=== PATIENT | female | born 1930 | race Caucasian/White ===

== ENCOUNTER → 2017-03-28 | Day surgery (SDC) | payer MEDICARE ==
[~2017-03-28] MED LIST: ALBU8I INH; ATOR40TA49 PO; CEPH500C3 PO; COEN400C PO; CRAN500C2 PO; GINK40TA2 PO; GLIP5 PO; LACTATED RINGER'S 1000 ML INJ 1,000 ML ONE; LEVO.1 PO; LEVO88TA2 PO; LORA0.5T PO; OCUVTAB4 PO; OMEG5CAP PO; OYST500T77 PO; PARO30TA PO; PROPOFOL 500 MG/50 ML BTL IV ONE; PROT40TA PO; TRIM100T8 PO; VITA500T83 PO; VITATAB25 PO; [UNRECOGNIZED DRUG - OTHER] PO
--- NOTE | 2017-03-28 12:38 | GIPROC ---
[facility] [address] [facility], [id number] COLONOSCOPY PROCEDURE REPORT EXAM DATE: 03/28/2017 PATIENT NAME: Leeanna Meyers MR #: [id number] BIRTHDATE: 1930 ENDOSCOPIST: Sarabjit Adrian MD ORDER #: [id number] MICRO PHOTOGRAPHER: Niya Rojas RN STATUS: outpatient INDICATIONS: The patient is a 86 yr old female here for a colonoscopy due to high risk patient with personal history of colonic polyps and chronic diarrhea PROCEDURE PERFORMED: Colonoscopy with biopsy Colonoscopy with ablation Colonoscopy with polypectomy MEDICATIONS: None and Per Anesthesia. PREP QUALITY: good ESTIMATED BLOOD LOSS: None CONSENT: The patient understands the risks and benefits of the procedure and understands that these risks include, but are not limited to: sedation, allergic reaction, infection, perforation and/or bleeding. Alternative means of evaluation and treatment include, among others: physical exam, x-rays, and/or surgical intervention. The patient elects to proceed with this endoscopic procedure. medical equipment was checked for proper function. Hand hygiene and appropriate measures for infection prevention was taken. After the risks, benefits and alternatives of the procedure were thoroughly explained, Informed consent was verified, confirmed and timeout was successfully executed by the treatment team. A digital exam was performed and revealed no abnormalities of the rectum The EC-[id number] ([id number]) and [id number] ([id number]) endoscope was introduced through the anus and advanced to the cecum, which was identified by both the appendix and ileocecal valve. The instrument was then slowly withdrawn as the colon was fully examined. 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 Polyp in the cecum removed by snare. 5 polyps in the rectum 3 removed by snare and 2 ablated with heat. The colon mucosa was otherwise normal. Random Bx from cecum and sigmoid for diarrhea. Retroflexed views revealed no abnormalities The scope was then completely withdrawn from the patient and the procedure terminated. ADVERSE EVENTS: There were no complications. IMPRESSIONS: 1. 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 Polyp in the cecum removed by snare 3. 5 polyps in the rectum 3 removed by snare and 2 ablated with heat 4. The colon mucosa was otherwise normal 5. Random Bx from cecum and sigmoid for diarrhea 6. Retroflexed views revealed no abnormalities 7. Was performed 8. Revealed no abnormalities of the rectum RECOMMENDATIONS: 1. Await biopsy results. Biopsy results will not be ready for 7-10 days. If you don't hear from us in two weeks, call our office for results. 2. Yearly hemoccult 3. High fiber diet 4. RTC in 3 wks RECALL: 1. Return 3 years Colonoscopy 2. Return 3 months Flexible Sigmoidoscopy Sarabjit Adrian MD eSigned: Sarabjit Adrian MD 03/28/2017 12:38 PM cc: PATIENT NAME: Leeanna Meyers MR#: [id number]
== END | disposition home or self-care (01) ==
LOC: ESDC 09:40
PROVIDERS: ATTEND Hospitalist
DX: R19.7 Diarrhea, unspecified (principal); Z86.010 Personal history of colon polyps; Q27.33 Arteriovenous malformation of digestive system vessel; D12.0 Benign neoplasm of cecum; K62.1 Rectal polyp
CPT/HCPCS: 00810; 45380; 45385; 45388; 88305; J7120

== ENCOUNTER 2017-05-07 09:56 | Emergency (ER) | payer MEDICARE ==
[~2017-05-07] VITALS: Ht 154.9 cm; Wt 66.0 kg
[~2017-05-07 09:56] MED LIST changes: -LACTATED RINGER'S 1000 ML INJ 1,000 ML ONE; -PROPOFOL 500 MG/50 ML BTL IV ONE
[2017-05-07 09:58] VITALS: BP 144/79; PULSE 90; RESP 20; TEMP 98.9; O2SAT 96
[2017-05-07 10:20] VITALS: BP 161/78; PULSE 89; RESP 17; TEMP 97.8; O2SAT 98
[2017-05-07 10:58] VITALS: RESP 18; O2SAT 98
[2017-05-07] MEDS ORDERED: SODIUM CHLORIDE 0.9% FLUSH 10 ML FLUSH IVF PRN (11:00)
[2017-05-07 11:36] LABS: AUTOMATED NEUTROPHIL # 7.1 TH/MM3 (1.8-7.7); BASOPHIL % 0.1 % (0.0-2.0); EOSINOPHIL % 0.4 % (0.0-4.0); HEMATOCRIT 43.6 % (35.0-46.0); HEMO FLAGS DIFF FINAL; LYMPH % 14.1 % (9.0-44.0); LYMPHOCYTE # 1.3 TH/MM3 (1.0-4.8); MEAN CELL VOLUME 91.7 FL (80.0-100.0); MEAN CORPUSCULAR HGB CONC 32.7 % (32.0-36.0); MONO % 5.5 % (0.0-8.0); NEUT % 79.9 % (16.0-70.0); PLATELET COUNT 224 TH/MM3 (150-450); RED BLOOD COUNT 4.75 MIL/MM3 (4.00-5.30); RED CELL DISTRIBUTION WIDTH 18.6 % (11.6-17.2); WHITE BLOOD COUNT 8.9 TH/MM3 (4.0-11.0)
--- NOTE | 2017-05-07 11:36 | PD ---
HPI Chief Complaint: Abnormal Results Time Seen by Provider: 10:51 Travel History International Travel<30 days: No Contact w/Intl Traveler<30days: No Traveled to known affect area: No History of Present Illness HPI Patient is an 86-year-old female with history of dementia, htn, hyperlipidemia, hypothyroidism who is brought to the emergency room after having a hypoglycemic episode. Patient does have history of diabetes, she does take glipize daily. As per EMS, patient was found unresponsive by her , EMS reported a blood sugar of 32 upon their arrival, reports the patient was essentially unresponsive. Patient was given D5 ordered 25 mg IV and was given a sandwich and cranberry juice, which that she became alert and oriented after she was given the amp of glucose. Patient is alert to person and place, not time, patient with no complaint at this time. PFSH Past Medical History Depression: Yes Cancer: No Cardiovascular Problems: Yes Diabetes: Yes Diminished Hearing: No Glaucoma: Yes Genitourinary: Yes (URINARY LEAKAGE) Hepatitis: No Hiatal Hernia: No Hypertension: No Immune Disorder: No Musculoskeletal: Yes (ARTHRITIS ) Neurologic: No Reproductive: No Respiratory: Yes (SLEEPS W/ 2L O2 @ NIGHT, SLEEP APNEA, UNABLE TO USE CPAP) Immunizations Current: No Thyroid Disease: Yes Menopausal: Yes : 3 Para: 3 Past Surgical History Abdominal Surgery: Yes (UMBILICAL HERNIA REPAIR) AICD: No Body Medical Devices: NONE Cardiac Surgery: No Ear Surgery: No Endocrine Surgery: No Eye Surgery: Yes (BILATERAL CATARACT) Genitourinary Surgery: No Gynecologic Surgery: No Joint Replacement: No Oral Surgery: No Pacemaker: No Thoracic Surgery: No Other Surgery: Yes Social History Alcohol Use: No Tobacco Use: Yes (PPD X 65 YEARS) Substance Use: No Allergies-Medications (Allergen,Severity, Reaction): Coded Allergies: Cipro (Verified Allergy, Mild, Hives, 05/07/17) Ciprofloxacin (Verified Allergy, Mild, Hives, 05/07/17) Levaquin (Verified Allergy, Mild, FLU LIKE SYMPTOMS; CHILLS, 05/07/17) Nitrofurantoin (Verified Allergy, Mild, Hives, 05/07/17) Sulfa (Verified Allergy, Mild, Hives, 05/07/17) Levofloxacin (Verified Adverse Reaction, Severe, Nausea/Vomiting, 05/07/17) Aspirin (Verified Adverse Reaction, Intermediate, IRRITATES STOMACH, ) Reported Meds & Prescriptions Reported Meds & Active Scripts Active Reported Ventolin Hfa 18 GM Inh (Albuterol Sulfate) 90 Mcg/Act Aer 2 Puff INH QID PRN C 500 (Ascorbic Acid) 500 Mg Tab 500 Mg PO HS Atorvastatin (Atorvastatin Calcium) 40 Mg Tab 40 Mg PO HS Calcium (Calcium Carbonate) 600 Mg Tab 600 Mg PO DAILY Vitamin D3 (Cholecalciferol) 1,000 Unit Tab 1,000 Units PO DAILY Coq-10 Tr (Coenzyme Q10 (Ubidecarenone)) 100 Mg Cap 100 Mg PO DAILY Cranberry (Cranberry Fruit Extract) 500 Mg Capsule 500 Mg PO DAILY Ginkgo Biloba 120 Mg Tablet 120 Mg PO DAILY Glipizide 5 Mg Tab 5 Mg PO BID Take 30 minutes before a meal Levothyroxine (Levothyroxine Sodium) 88 Mcg Tab 88 Mcg PO DAILY Lorazepam 0.5 Mg Tab 0.5 Mg PO BID Preservision Areds (Multiple Vitamins W/ Minerals) 1 Tab 1 Tab PO DAILY Pantoprazole (Pantoprazole Sodium) 40 Mg Tab 40 Mg PO DAILY Paxil (Paroxetine HCl) 30 Mg Tab 30 Mg PO DAILY Potassium Gluconate 595 Mg Tab 595 Mg PO DAILY Plavix (Clopidogrel Bisulfate) 75 Mg Tab 75 Mg PO DAILY Questran (Cholestyramine) 4 Gm/Pkt Powd 4 Gm PO TID 1 packet contains 4gm of cholestyramine. Tramadol (Tramadol HCl) 50 Mg Tab 50 Mg PO Q6H PRN Lomotil (Diphenoxylate-Atropine) 2.5-0.025 Mg Tab 1 Tab PO TID PRN Flonase Nasal [place] (Fluticasone Nasal [place]) 50 Mcg/Act [place] 1-2 [place] EACH NARE DAILY Review of Systems General / Constitutional: No: Fever Eyes: No: Visual changes HENT: No: Headaches Cardiovascular: No: Chest Pain or Discomfort Respiratory: No: Shortness of Breath Gastrointestinal: No: Abdominal Pain Genitourinary: No: Dysuria Musculoskeletal: No: Pain Skin: No Rash Neurologic: No: Weakness Psychiatric: No: Depression Endocrine: No: Polydipsia Hematologic/Lymphatic: No: Easy Bruising Physical Exam Narrative GENERAL: NAD SKIN: Focused skin assessment warm/dry. HEAD: Atraumatic. Normocephalic. EYES: Pupils equal and round. No scleral icterus. No injection or drainage. ENT: No nasal bleeding or discharge. Mucous membranes pink and moist. NECK: Trachea midline. No JVD. CARDIOVASCULAR: Regular rate and rhythm. No murmur appreciated. RESPIRATORY: No accessory muscle use. Clear to auscultation. Breath sounds equal bilaterally. GASTROINTESTINAL: Abdomen soft, non-tender, nondistended. Hepatic and splenic margins not palpable. MUSCULOSKELETAL: No obvious deformities. No clubbing. No cyanosis. No edema. NEUROLOGICAL: Awake and alert. No obvious cranial nerve deficits. Motor grossly within normal limits. Normal speech. PSYCHIATRIC: Patient pleasantly demented Data Data Last Documented VS Vital Signs Date Time Temp Pulse Resp B/P Pulse Ox O2 Delivery O2 Flow Rate FiO2 05/07/17 14:32 97.9 84 17 119/67 98 Room Air Orders Complete Blood Count With Diff (05/07/17 10:57) Comprehensive Metabolic Panel (05/07/17 10:57) Magnesium (Mg) (05/07/17 10:57) Urinalysis - C+S If Indicated (05/07/17 10:57) Blood Glucose (05/07/17 10:57) Blood Glucose (05/07/17 11:27) Blood Glucose (05/07/17 10:57) Ecg Monitoring (05/07/17 10:57) Iv Access Insert/Monitor (05/07/17 10:57) Oximetry (05/07/17 10:57) Sodium Chloride 0.9% Flush (Ns Flush) (05/07/17 11:00) Electrocardiogram (05/07/17 ) Urine Culture (05/07/17 11:00) Ceftriaxone Inj (Rocephin Inj) (05/07/17 14:30) Blood Glucose (05/07/17 14:17) Labs Laboratory Tests Test 05/07/17 11:00 White Blood Count 8.9 TH/MM3 Red Blood Count 4.75 MIL/MM3 Hemoglobin 14.2 GM/DL Hematocrit 43.6 % Mean Corpuscular Volume 91.7 FL Mean Corpuscular Hemoglobin 30.0 PG Mean Corpuscular Hemoglobin 32.7 % Concent Red Cell Distribution Width 18.6 % Platelet Count 224 TH/MM3 Mean Platelet Volume 8.5 FL Neutrophils (%) (Auto) 79.9 % Lymphocytes (%) (Auto) 14.1 % Monocytes (%) (Auto) 5.5 % Eosinophils (%) (Auto) 0.4 % Basophils (%) (Auto) 0.1 % Neutrophils # (Auto) 7.1 TH/MM3 Lymphocytes # (Auto) 1.3 TH/MM3 Monocytes # (Auto) 0.5 TH/MM3 Eosinophils # (Auto) 0.0 TH/MM3 Basophils # (Auto) 0.0 TH/MM3 CBC Comment DIFF FINAL Differential Comment Urine Color YELLOW Urine Turbidity HAZY Urine pH 5.5 Urine Specific [place] 1.010 Urine Protein TRACE mg/dL Urine Glucose (UA) TRACE mg/dL Urine Ketones 10 mg/dL Urine Occult Blood TRACE Urine Nitrite POS Urine Bilirubin NEG Urine Urobilinogen LESS THAN 2.0 MG/DL Urine Leukocyte Esterase LARGE Urine RBC 13 /hpf Urine WBC 22 /hpf Urine Squamous Epithelial 2 /hpf Cells Urine Calcium Oxalate Crystals RARE /hpf Urine Amorphous Sediment OCC Urine Bacteria MANY /hpf Urine Mucus FEW /lpf Microscopic Urinalysis Comment CULTURE INDICATED Sodium Level 140 MEQ/L Potassium Level 3.6 MEQ/L Chloride Level 104 MEQ/L Carbon Dioxide Level 24.5 MEQ/L Anion Gap 12 MEQ/L Blood Urea Nitrogen 17 MG/DL Creatinine 1.06 MG/DL Estimat Glomerular Filtration 49 ML/MIN Rate Random Glucose 152 MG/DL Calcium Level 8.9 MG/DL Magnesium Level 1.6 MG/DL Total Bilirubin 0.6 MG/DL Aspartate Amino Transf 37 U/L (AST/SGOT) Alanine Aminotransferase 22 U/L (ALT/SGPT) Alkaline Phosphatase 140 U/L Total Protein 6.6 GM/DL Albumin 2.3 GM/DL [facility] Medical Decision Making Medical Screen Exam Complete: Yes Emergency Medical Condition: Yes Interpretation(s) EKG at 1138: NSR at 84bpm, qt/qtc: 390/431, no acute st or t wave changes, rbbb Vital Signs Date Time Temp Pulse Resp B/P Pulse Ox O2 Delivery O2 Flow Rate FiO2 05/07/17 10:58 18 98 Room Air 05/07/17 10:20 97.8 89 17 161/78 98 05/07/17 09:58 98.9 90 20 144/79 96 Room Air Differential Diagnosis Differential includes medication overdose, electrolyte abnormality, arrhythmia, UTI, dehydration Narrative Course Patient is an 86 year old female who presents to ER with c/o of hypoglycemic episodes. Patient was given an amp of D25 by EMS and was given a sandwich as well as cranberry juice. Patients bs 168. Plan to obtain serial bs's. will obtain basic labs as well as ua. Plan to monitor patient Vital Signs Date Time Temp Pulse Resp B/P Pulse Ox O2 Delivery O2 Flow Rate FiO2 05/07/17 14:32 97.9 84 17 119/67 98 Room Air 05/07/17 12:30 89 18 125/68 98 Room Air 05/07/17 10:58 18 98 Room Air 05/07/17 10:20 89 18 98 Room Air 05/07/17 10:20 97.8 89 17 161/78 98 05/07/17 09:58 98.9 90 20 144/79 96 Room Air Laboratory Tests Test 05/07/17 11:00 White Blood Count 8.9 TH/MM3 (4.0-11.0) Red Blood Count 4.75 MIL/MM3 (4.00-5.30) Hemoglobin 14.2 GM/DL (11.6-15.3) Hematocrit 43.6 % (35.0-46.0) Mean Corpuscular Volume 91.7 FL (80.0-100.0) Mean Corpuscular Hemoglobin 30.0 PG (27.0-34.0) Mean Corpuscular Hemoglobin 32.7 % Concent (32.0-36.0) Red Cell Distribution Width 18.6 % (11.6-17.2) Platelet Count 224 TH/MM3 (150-450) Mean Platelet Volume 8.5 FL (7.0-11.0) Neutrophils (%) (Auto) 79.9 % (16.0-70.0) Lymphocytes (%) (Auto) 14.1 % (9.0-44.0) Monocytes (%) (Auto) 5.5 % (0.0-8.0) Eosinophils (%) (Auto) 0.4 % (0.0-4.0) Basophils (%) (Auto) 0.1 % (0.0-2.0) Neutrophils # (Auto) 7.1 TH/MM3 (1.8-7.7) Lymphocytes # (Auto) 1.3 TH/MM3 (1.0-4.8) Monocytes # (Auto) 0.5 TH/MM3 (0-0.9) Eosinophils # (Auto) 0.0 TH/MM3 (0-0.4) Basophils # (Auto) 0.0 TH/MM3 (0-0.2) CBC Comment DIFF FINAL Differential Comment Urine Color YELLOW (YELLW/STRAW) Urine Turbidity HAZY (CLEAR) Urine pH 5.5 (5.0-8.5) Urine Specific [place] 1.010 (1.002-1.035) Urine Protein TRACE mg/dL (NEG-TRACE) Urine Glucose (UA) TRACE mg/dL (NEG) Urine Ketones 10 mg/dL (NEG) Urine Occult Blood TRACE (NEG) Urine Nitrite POS (NEG) Urine Bilirubin NEG (NEG) Urine Urobilinogen LESS THAN 2.0 MG/DL (LESS THAN 2.0) Urine Leukocyte Esterase LARGE (NEG) Urine RBC 13 /hpf (0-3) Urine WBC 22 /hpf (0-5) Urine Squamous Epithelial 2 /hpf (0-5) Cells Urine Calcium Oxalate Crystals RARE /hpf (NONE) Urine Amorphous Sediment OCC Urine Bacteria MANY /hpf (NONE) Urine Mucus FEW /lpf (OCC) Microscopic Urinalysis Comment CULTURE INDICATED Sodium Level 140 MEQ/L (136-145) Potassium Level 3.6 MEQ/L (3.5-5.1) Chloride Level 104 MEQ/L (98-107) Carbon Dioxide Level 24.5 MEQ/L (21.0-32.0) Anion Gap 12 MEQ/L (5-15) Blood Urea Nitrogen 17 MG/DL (7-18) Creatinine 1.06 MG/DL (0.50-1.00) Estimat Glomerular Filtration 49 ML/MIN (>89) Rate Random Glucose 152 MG/DL (74-106) Calcium Level 8.9 MG/DL (8.5-10.1) Magnesium Level 1.6 MG/DL (1.5-2.5) Total Bilirubin 0.6 MG/DL (0.2-1.0) Aspartate Amino Transf 37 U/L (15-37) (AST/SGOT) Alanine Aminotransferase 22 U/L (10-53) (ALT/SGPT) Alkaline Phosphatase 140 U/L (45-117) Total Protein 6.6 GM/DL (6.4-8.2) Albumin 2.3 GM/DL (3.4-5.0) patient well-appearing in the emergency room, patient with no complaints. patient has had multiple blood sugar evaluation while in the ER. BS stable BS at discharge 78. she has been observed in the ER for 5 hours. She does appear to have UTI - will treat for uti. patient will follow up with her pcp and will return to ER as needed Diagnosis Primary Impression: Hypoglycemia Additional Impression: UTI (urinary tract infection) Qualified Code: N30.01 - Acute cystitis with hematuria Patient Instructions: General Instructions Additional Instructions: Please follow up with your primary care doctor Please monitor your blood sugar carefully Please follow up with your cultures from today Please return to the ER as needed Please have your primary care doctor repeat all your lab work from today Med/Other Pt SpecificInfo: Prescription(s) given Scripts Cephalexin (Keflex)500 Mg [id number] Mg PO Q6H 7 Days Ref 0 Prov:Regina Oliva DO 05/07/17 Disposition: 01 DISCHARGE HOME Condition: Stable Regina Oliva DO May 07, 2017 11:36
[2017-05-07 11:48] LABS: BACTERIA, URINE MANY /hpf; BLOOD, URINE TRACE (NEG); CALCIUM OXALATE CRYSTALS,URINE RARE /hpf; COMMENT (UR) CULTURE INDICATED; CULTURE IF INDICATED CULTURE INDICATED; GLUCOSE,URINE TRACE mg/dL (NEG); KETONE, URINE 10 mg/dL (NEG); MUCUS URINE FEW /lpf (OCC); NITRITE,URINE POS (NEG); PH, URINE 5.5 (5.0-8.5); SQUAMOUS EPITHELIAL CELL URINE 2 /hpf (0-5); URINE COLOR YELLOW (YELLW/STRAW)
[2017-05-07 12:06] LABS: ALKALINE PHOSPHATASE 140 U/L (45-117); ALT (GPT) 22 U/L (10-53); TOTAL BILIRUBIN ADULT 0.6 MG/DL (0.2-1.0)
[2017-05-07 12:19] LABS: ANION GAP 12 MEQ/L (5-15); AST (GOT) 37 U/L (15-37); BICARBONATE 24.5 MEQ/L (21.0-32.0); BLOOD UREA NITROGEN 17 MG/DL (7-18); CHLORIDE 104 MEQ/L (98-107); GLOMERULAR FILTRATION RATE 49 ML/MIN (>89); MAGNESIUM 1.6 MG/DL (1.5-2.5); POTASSIUM 3.6 MEQ/L (3.5-5.1); SODIUM (NA) 140 MEQ/L (136-145)
[2017-05-07 12:30] VITALS: BP 125/68; PULSE 89; RESP 18; O2SAT 98
[2017-05-07] MEDS ORDERED: LOMO2.5T PO (12:56)
[2017-05-07] MEDS ORDERED: FLUT1SPR5 EACH NARE (12:56)
[2017-05-07] MEDS ORDERED: QUES4POW PO (13:10)
[2017-05-07] MEDS ORDERED: TRAM50TA PO (13:10)
[2017-05-07] MEDS ORDERED: CRAN500C9 PO (13:10)
[2017-05-07] MEDS ORDERED: ATOR40TA16 PO (13:10)
[2017-05-07] MEDS ORDERED: GLIP5TAB8 PO (13:10)
[2017-05-07] MEDS ORDERED: PANT40TA3 PO (13:10)
[2017-05-07] MEDS ORDERED: PLAV75TA29 PO (13:10)
[2017-05-07] MEDS ORDERED: COQ-100C5 PO (13:10)
[2017-05-07] MEDS ORDERED: CALC600T25 PO (13:10)
[2017-05-07] MEDS ORDERED: GINK120T4 PO (13:10)
[2017-05-07] MEDS ORDERED: C 50TAB PO (13:10)
[2017-05-07] MEDS ORDERED: VITA100064 PO (13:10)
[2017-05-07] MEDS ORDERED: POTA595T PO (13:10)
[2017-05-07] MEDS ORDERED: OCUVTAB4 PO (13:10)
[2017-05-07] MEDS ORDERED: PAXI30TA7 PO (13:10)
[2017-05-07] MEDS ORDERED: LORA-373 PO (13:10)
[2017-05-07] MEDS ORDERED: LEVO88TA2 PO (13:10)
[2017-05-07] MEDS ORDERED: VENTAER INH (13:11)
[2017-05-07] MEDS ORDERED: cefTRIAXone INJ 1,000 MG in SODIUM CHLORIDE 0.9% INJ 100 ML IV ONE (14:30)
[2017-05-07 14:32] VITALS: BP 119/67; PULSE 84; RESP 17; TEMP 97.9; O2SAT 98
[2017-05-07] MEDS ORDERED: CEPH-460 PO (15:53)
[2017-05-07 18:15] VITALS: BP 143/81; TEMP 97.8
--- NOTE | 2017-05-08 12:37 | EKG ---
Date Performed: 05/07/2017 Time Performed: 11:38:35 PTAGE: 86 years EKG: Sinus rhythm BORDERLINE LEFT AXIS DEVIATION RIGHT BUNDLE BRANCH BLOCK Compared to prior tracing no significant ch kevin ABNORMAL ECG PREVIOUS TRACING : 08/19/2015 08.25 DOCTOR: Alessandro Oropeza Interpretating Date/Time 05/08/2017 12:33:39
[2017-05-11] MEDS ORDERED: HYDR-3516 PO (12:26)
== END 2017-05-07 18:16 | disposition home or self-care (01) ==
LOC: NEPE 09:56
DX: E11.649 Type 2 diabetes mellitus with hypoglycemia without coma (principal); N30.01 Acute cystitis with hematuria; B96.20 Unspecified Escherichia coli [E. coli] as the cause of diseases classified elsewhere; Z79.84 Long term (current) use of oral hypoglycemic drugs
CPT/HCPCS: 80053; 81001; 83735; 85025; 87077; 87086; 87186; 93005; 96365; 99284; J0696

== ENCOUNTER 2017-05-18 08:28 | Observation (INO) | payer MEDICARE ==
[~2017-05-18] VITALS: Ht 154.9 cm; Wt 64.4 kg
[~2017-05-18 08:28] MED LIST changes: -ALBU8I INH; +ATOR40TA16 PO; -ATOR40TA49 PO; +C 50TAB PO; +CALC600T25 PO; +CEPH-460 PO; -CEPH500C3 PO; -COEN400C PO; +COQ-100C5 PO; -CRAN500C2 PO; +CRAN500C9 PO; +FLUT1SPR5 EACH NARE; +GINK120T4 PO; -GINK40TA2 PO; -GLIP5 PO; +GLIP5TAB8 PO; +HYDR-3516 PO; -LEVO.1 PO; +LOMO2.5T PO; +LORA-373 PO; -LORA0.5T PO; -OMEG5CAP PO; -OYST500T77 PO; +PANT40TA3 PO; -PARO30TA PO; +PAXI30TA7 PO; +PLAV75TA29 PO; +POTA595T PO; -PROT40TA PO; +QUES4POW PO; +TRAM50TA PO; -TRIM100T8 PO; +VENTAER INH; +VITA100064 PO; -VITA500T83 PO; -VITATAB25 PO; -[UNRECOGNIZED DRUG - OTHER] PO
[2017-05-18 08:46] VITALS: BP 172/74; PULSE 85; RESP 16; TEMP 98.2; O2SAT 94
--- NOTE | 2017-05-18 09:24 | PD ---
HPI Chief Complaint: Fall Time Seen by Provider: 09:02 Travel History International Travel<30 days: No Contact w/Intl Traveler<30days: No Traveled to known affect area: No History of Present Illness HPI 86yo F with PMH of diabetes, arthritis presents to the ED with c/o right arm pain s/p fall today. Pt states she was walking with a walker and was trying to get to the chair but fell on backwards. Pt has chronic back pain and has frequent falls. Denies any head trauma, LOC, dizziness, chest pain, sob, n/v, abdominal pain, focal weakness or numbness. Pt has multiple skin tears in her legs and there are some new ones. Pt is AAOx3 now. PFSH Past Medical History Depression: Yes Cancer: No Cardiovascular Problems: Yes Diabetes: Yes Patient Takes Glucophage: Yes Diminished Hearing: No Gastrointestinal Disorders: Yes (GERD; DIVERTICULITIS) Glaucoma: Yes Genitourinary: Yes (URINARY LEAKAGE) Hepatitis: No Hiatal Hernia: No Hypertension: No Immune Disorder: No Musculoskeletal: Yes (ARTHRITIS ) Neurologic: No Reproductive: No Respiratory: Yes (SLEEPS W/ 2L O2 @ NIGHT, SLEEP APNEA, UNABLE TO USE CPAP) Immunizations Current: No Thyroid Disease: Yes ?: Not Menopausal: Yes : 3 Para: 3 Past Surgical History Abdominal Surgery: Yes (UMBILICAL HERNIA REPAIR) AICD: No Body Medical Devices: NONE Cardiac Surgery: No Ear Surgery: No Endocrine Surgery: No Eye Surgery: Yes (BILATERAL CATARACT) Genitourinary Surgery: No Gynecologic Surgery: No Joint Replacement: No Oral Surgery: No Pacemaker: No Thoracic Surgery: No Other Surgery: Yes Social History Alcohol Use: No (PT DENIES) Tobacco Use: Yes (1 PPD X 65 YEARS) Substance Use: No (PT DENIES) Allergies-Medications (Allergen,Severity, Reaction): Coded Allergies: Cipro (Verified Allergy, Mild, Hives, 05/18/17) Ciprofloxacin (Verified Allergy, Mild, Hives, 05/18/17) Levaquin (Verified Allergy, Mild, FLU LIKE SYMPTOMS; CHILLS, 05/18/17) Nitrofurantoin (Verified Allergy, Mild, Hives, 05/18/17) Sulfa (Verified Allergy, Mild, Hives, 05/18/17) Levofloxacin (Verified Adverse Reaction, Severe, Nausea/Vomiting, 05/18/17) Aspirin (Verified Adverse Reaction, Intermediate, IRRITATES STOMACH, ) Reported Meds & Prescriptions Reported Meds & Active Scripts Active Glipizide 5 Mg Tab 2.5 Mg PO BID Take 30 minutes before a meal Hydrocodone-Acetaminophen 5-325 mg Tab 1 Tab PO Q6H PRN Reported Ventolin Hfa 18 GM Inh (Albuterol Sulfate) 90 Mcg/Act Aer 2 Puff INH QID PRN C 500 (Ascorbic Acid) 500 Mg Tab 500 Mg PO HS Atorvastatin (Atorvastatin Calcium) 40 Mg Tab 40 Mg PO HS Calcium (Calcium Carbonate) 600 Mg Tab 600 Mg PO DAILY Vitamin D3 (Cholecalciferol) 1,000 Unit Tab 1,000 Units PO DAILY Coq-10 Tr (Coenzyme Q10 (Ubidecarenone)) 100 Mg Cap 100 Mg PO DAILY Cranberry (Cranberry Fruit Extract) 500 Mg Capsule 500 Mg PO DAILY Ginkgo Biloba 120 Mg Tablet 120 Mg PO DAILY Levothyroxine (Levothyroxine Sodium) 88 Mcg Tab 88 Mcg PO DAILY Lorazepam 0.5 Mg Tab 0.5 Mg PO BID Preservision Areds (Multiple Vitamins W/ Minerals) 1 Tab 1 Tab PO DAILY Pantoprazole (Pantoprazole Sodium) 40 Mg Tab 40 Mg PO DAILY Paxil (Paroxetine HCl) 30 Mg Tab 30 Mg PO DAILY Potassium Gluconate 595 Mg Tab 595 Mg PO DAILY Plavix (Clopidogrel Bisulfate) 75 Mg Tab 75 Mg PO DAILY Questran (Cholestyramine) 4 Gm/Pkt Powd 4 Gm PO TID 1 packet contains 4gm of cholestyramine. Tramadol (Tramadol HCl) 50 Mg Tab 50 Mg PO Q6H PRN Lomotil (Diphenoxylate-Atropine) 2.5-0.025 Mg Tab 1 Tab PO TID PRN Flonase Nasal [place] (Fluticasone Nasal [place]) 50 Mcg/Act [place] 1-2 [place] EACH NARE DAILY Review of Systems Except as stated in HPI: all other systems reviewed are Neg Physical Exam Narrative GENERAL: 86yo F in mild distress. SKIN: Focused skin assessment warm/dry. HEAD: Atraumatic. Normocephalic. EYES: Pupils equal and round at 3mm bilaterally. EOMI. No scleral icterus. No injection or drainage. ENT: No nasal bleeding or discharge. Mucous membranes pink and moist. NECK: No midline ttp. CARDIOVASCULAR: Regular rate and rhythm. No murmur appreciated. RESPIRATORY: No accessory muscle use. Clear to auscultation. Breath sounds equal bilaterally. GASTROINTESTINAL: Abdomen soft, non-tender, nondistended. No rebound tenderness or guarding. BACK: +TTP lumbar spine. MUSCULOSKELETAL: 2 old skin tear wounds on right tib/fib that has been dressed. Small new skin tear medial right tibia. +New skin tear in left tibia. DP 2+ in bilateral foot. Muscle strength intact. Sensation intact. NEUROLOGICAL: Awake and alert. No obvious cranial nerve deficits. Motor grossly within normal limits. Normal speech. PSYCHIATRIC: Appropriate mood and affect; insight and judgment normal. Data Data Last Documented VS Vital Signs Date Time Temp Pulse Resp B/P Pulse Ox O2 Delivery O2 Flow Rate FiO2 05/18/17 08:53 94 Nasal Cannula 2 05/18/17 08:46 98.2 85 16 172/74 Orders Spine, Lumbar - Ltd (Ap & Lat) (05/18/17 ) Shoulder, Limited(2vws) (05/18/17 ) Tibia/Fibula (Ap/Lat) (05/18/17 ) Tibia/Fibula (Ap/Lat) (05/18/17 ) Ct Brain W/O Iv Contrast(Rout) (05/18/17 ) Complete Blood Count With Diff (05/18/17 09:27) Basic Metabolic Panel (Bmp) (05/18/17 09:27) Prothrombin Time / Inr (Pt) (05/18/17 09:27) Act Partial Throm Time (Ptt) (05/18/17 09:27) Sling And Swathe (05/18/17 ) Morphine Inj (Morphine Inj) (05/18/17 10:15) Consult Orthopedic (05/18/17 ) (Hub Use Only)Inp Phy Cons/Ref (05/18/17 ) Potassium Chloride (Kcl) (05/18/17 11:30) Activity Oob With Assistance (05/18/17 11:33) Scd Bilateral/Knee High CHICHI.QSHIFT (05/18/17 11:33) Vital Signs (Adult) CHICHI.Q4H (05/18/17 11:33) Diet Npo Except Meds (05/18/17 Lunch) Ns + Kcl 20 Meq Inj (Ns + Kcl 20 Meq Inj (05/18/17 13:00) Acetaminophen (Tylenol) (05/18/17 11:45) Ondansetron Inj (Zofran Inj) (05/18/17 11:45) Admit Order (Ed Use Only) (05/18/17 11:40) Labs Laboratory Tests Test 05/18/17 10:00 White Blood Count 10.9 TH/MM3 Red Blood Count 4.57 MIL/MM3 Hemoglobin 14.1 GM/DL Hematocrit 41.6 % Mean Corpuscular Volume 91.0 FL Mean Corpuscular Hemoglobin 31.0 PG Mean Corpuscular Hemoglobin 34.1 % Concent Red Cell Distribution Width 19.0 % Platelet Count 229 TH/MM3 Mean Platelet Volume 8.7 FL Neutrophils (%) (Auto) 75.8 % Lymphocytes (%) (Auto) 14.0 % Monocytes (%) (Auto) 8.9 % Eosinophils (%) (Auto) 0.7 % Basophils (%) (Auto) 0.6 % Neutrophils # (Auto) 8.3 TH/MM3 Lymphocytes # (Auto) 1.5 TH/MM3 Monocytes # (Auto) 1.0 TH/MM3 Eosinophils # (Auto) 0.1 TH/MM3 Basophils # (Auto) 0.1 TH/MM3 CBC Comment DIFF FINAL Differential Comment Prothrombin Time 10.7 SEC Prothromb Time International 1.0 RATIO Ratio Activated Partial 25.5 SEC Thromboplast Time Sodium Level 141 MEQ/L Potassium Level 3.2 MEQ/L Chloride Level 106 MEQ/L Carbon Dioxide Level 27.4 MEQ/L Anion Gap 8 MEQ/L Blood Urea Nitrogen 12 MG/DL Creatinine 0.85 MG/DL Estimat Glomerular Filtration 64 ML/MIN Rate Random Glucose 95 MG/DL Calcium Level 9.3 MG/DL [facility] Medical Decision Making Medical Screen Exam Complete: Yes Emergency Medical Condition: Yes Differential Diagnosis Fracture vs. contusion vs. failure to thrive Narrative Course 86yo F who was walking with her walker and fell down complaining of right arm pain and back pain. Sounds like a mechanical fall secondary to her back pain and pt does fall frequently with many old skin breaks. Labs reviewed, no leukocytosis. K: 3.2, replaced orally. Xray LS showed severe compression deformity T12 of indeterminate age. Xray right shoulder showed acute fracture involving right proximal humeral head and neck. Xray right tib/fib showed no acute fracture or dislocation. Xray left tib/fib showed no acute fracture or dislocation of the tibia or fibula. Pt given morphine for pain with improvement. Pt states she does not think she hit her head but triage note said she did and on further questioning, she is not 100% sure. No focal neurologic deficits, will obtain one just in case since pt is [address] brain negative. Pt's right arm placed in sling and swathe. Since pt uses a walker and lives alone with her elderly , do not feel that pt is a safe discharge now that she cant use her right arm. I discussed with Dr. Corral from orthopedic surgery and he agrees with sling and he will see her today or tomorrow but does not think it is surgical. Discussed with Dr. Prieto and admitted to medicine. Diagnosis Primary Impression: Right humeral fracture Qualified Code: S42.224A - Closed 2-part nondisplaced fracture of surgical neck of right humerus, initial encounter Admitting Information Admitting Physician Requests: Admit Scripts Glipizide 5 Mg Tab2.5 Mg PO BID #60 TAB Ref 0 Take 30 minutes before a meal Prov:Ricco Prieto MD 05/18/17 Lavonne Vargas DO May 18, 2017 09:24
[2017-05-18] MEDS ORDERED: MORPHINE SULFATE 4 MG/ML INJ IV PUSH ONE (10:15)
--- NOTE | 2017-05-18 10:26 | RADRPT ---
EXAM DATE/TIME: 05/18/2017 09:49 [facility] COMPARISON: No previous studies available for comparison. INDICATIONS : Fell this morning. MEDICAL HISTORY : None. SURGICAL HISTORY : None. ENCOUNTER: Initial ACUITY: 1 day PAIN SCORE: 10/10 LOCATION: Right shoulder FINDINGS: There is an acute fracture involving the right proximal humeral neck and head. Degenerative changes are noted involving the right acromioclavicular joint and glenohumeral joint. CONCLUSION: 1. Acute fracture involving the right proximal humeral head and neck. 2. Degenerative changes involving the right acromioclavicular and glenohumeral joints. Juanito Pillai MD on May 18, 2017 at 10:18 Board Certified Radiologist. This report was verified electronically.
--- NOTE | 2017-05-18 10:41 | RADRPT ---
EXAM DATE/TIME: 05/18/2017 09:46 [facility] COMPARISON: No previous studies available for comparison. INDICATIONS : Fell today. MEDICAL HISTORY : None. SURGICAL HISTORY : None. ENCOUNTER: Initial ACUITY: 1 day PAIN SCORE: 5/10 LOCATION: Bilateral lumbar FINDINGS: There is severe compression deformity involving T12 of indeterminate age. Diffuse degenerative edmonds es and scoliosis of the lumbar spine are noted. CONCLUSION: 1. Severe compression deformity involving what appears to be T12 of indeterminate age. 2. Degenerative changes and scoliosis of the lumbar spine. Juanito Pillai MD on May 18, 2017 at 10:36 Board Certified Radiologist. This report was verified electronically.
[2017-05-18 10:44] LABS: AUTOMATED NEUTROPHIL # 8.3 TH/MM3 (1.8-7.7); BASOPHIL # 0.1 TH/MM3 (0-0.2); BASOPHIL % 0.6 % (0.0-2.0); EOSINOPHIL # 0.1 TH/MM3 (0-0.4); EOSINOPHIL % 0.7 % (0.0-4.0); HEMATOCRIT 41.6 % (35.0-46.0); HEMO FLAGS DIFF FINAL; LYMPHOCYTE # 1.5 TH/MM3 (1.0-4.8); MEAN CORPUSCULAR HGB CONC 34.1 % (32.0-36.0); MONO % 8.9 % (0.0-8.0); NEUT % 75.8 % (16.0-70.0); PLATELET COUNT 229 TH/MM3 (150-450); RED BLOOD COUNT 4.57 MIL/MM3 (4.00-5.30); WHITE BLOOD COUNT 10.9 TH/MM3 (4.0-11.0)
--- NOTE | 2017-05-18 10:47 | RADRPT ---
EXAM DATE/TIME: 05/18/2017 09:54 [facility] COMPARISON: No previous studies available for comparison. INDICATIONS : Fell this morning. MEDICAL HISTORY : None. SURGICAL HISTORY : None. ENCOUNTER: Initial ACUITY: 1 day PAIN SCORE: 5/10 LOCATION: Left tib/fib FINDINGS: There is no acute fracture or dislocation of the tibia or fibula. Degenerative changes are noted inv olving the left knee and ankle joints. Plantar and Achilles calcaneal spurs are noted. CONCLUSION: 1. No acute fracture or dislocation of the tibia or fibula. 2. Degenerative changes involving the left knee and ankle joints. 3. Plantar and Achilles calcaneal spurs. Juanito Pillai MD on May 18, 2017 at 10:37 Board Certified Radiologist. This report was verified electronically.
--- NOTE | 2017-05-18 10:48 | RADRPT ---
EXAM DATE/TIME: 05/18/2017 09:51 [facility] COMPARISON: No previous studies available for comparison. INDICATIONS : Fell today. MEDICAL HISTORY : None. SURGICAL HISTORY : None. ENCOUNTER: Initial ACUITY: 1 day PAIN SCORE: 5/10 LOCATION: Right tib/fib FINDINGS: There is no acute fracture or dislocation of the tibia or fibula. Mild degenerative changes are noted involving the knee and ankle joints. Prominent plantar and Achilles calcaneal spurs are noted. CONCLUSION: 1. No acute fracture or dislocation of the tibia or fibula. 2. Mild degenerative changes involving the knee and ankle joint. 3. Prominent plantar and Achilles calcaneal spurs. Juanito Pillai MD on May 18, 2017 at 10:25 Board Certified Radiologist. This report was verified electronically.
[2017-05-18 10:59] LABS: APTT (PATIENT) 25.5 SEC (24.3-30.1); PROTHROMBIN TIME - PATIENT 10.7 SEC (9.8-11.6)
[2017-05-18 11:15] LABS: BICARBONATE 27.4 MEQ/L (21.0-32.0); POTASSIUM 3.2 MEQ/L (3.5-5.1)
[2017-05-18] MEDS ORDERED: POTASSIUM CHLORIDE 20 MEQ CONTROLLED RELEASE TAB PO ONE (11:30)
[2017-05-18] MEDS ORDERED: ONDANSETRON HCL 4 MG/2 ML VIAL IV PRN (11:45)
[2017-05-18] MEDS ORDERED: ACETAMINOPHEN 325 MG TAB PO PRN (11:45)
--- NOTE | 2017-05-18 14:03 | RADRPT ---
EXAM DATE/TIME: 05/18/2017 13:27 [facility] COMPARISON: No previous studies available for comparison. INDICATIONS : Fell hit head. RADIATION DOSE: 56.35 CTDIvol (mGy) MEDICAL HISTORY : Chronic obstructive pulmonary disease. Cardiovascular disease SURGICAL HISTORY : None. ENCOUNTER: Initial ACUITY: 1 day PAIN SCALE: 4/10 LOCATION: Cranial TECHNIQUE: Multiple contiguous axial images were obtained of the head. Using automated exposure control and adj ustment of the mA and/or kV according to patient size, radiation dose was kept as low as reasonably a chievable to obtain optimal diagnostic quality images. DICOM format image data is available electro nically for review and comparison. FINDINGS: Diffuse cerebral atrophy is noted. There is no acute infarct, acute hemorrhage, mass effect or extra axial fluid collections. Moderate periventricular and subcortical white matter small vessel ischemic changes are noted bilaterally. The bone windows are unremarkable. CONCLUSION: 1. Diffuse cerebral atrophy. 2. No acute infarct, acute hemorrhage, mass effect or extraaxial fluid collections. 3. Moderate periventricular and subcortical white matter small vessel ischemic changes bilaterally. Juanito Pillai MD on May 18, 2017 at 13:42 Board Certified Radiologist. This report was verified electronically.
[2017-05-18] MEDS: NS + KCL 20 MEQ INJ 1,000 ML IV SCH (14:06)
--- NOTE | 2017-05-18 16:28 | HHI.HP ---
HPI Service [facility] Primary Care Physician Bebeto Rojas MD Admission Diagnosis Right humerus fracture Chief Complaint: falls/arm pain Travel History International Travel<30 Days: No Contact w/Intl Traveler <30 Da: No Traveled to Known Affected Are: No History of Present Illness Pt is 86 yo who was brought into ED with fall and right arm pain. She reports numerous falls recently and she uses a walker. She has alot of skin tears of the rodriguez and ankles. Today she is found to have a right humerus fx. Denies dizziness or syncope. She just loses balance and falls. Seen in ED April 07 and given 7 days keflex for uti. Seen by Nsg Dr Valenzuela 05/11 and reviewed her 04/25/17 MRI of the lumbar spine without contrast from [facility]. The study reveals a significant T12 compression fracture with also 75-80% of the central vertebral body height. There appears to be a significant fracture line extending towards the middle of the vertebral body with possible separation of the fragments. There is associated expansion of the T11-12 disc space height. There is mild retropulsion of the posterior T12 vertebral body into the canal without significant overall canal stenosis or impingement of the neural elements. Milder end plate deformity is noted at the L1-2, L2-3, L3-4 levels. Relatively acute T12 compression fracture, at least 75% loss of central height with probable mild separation of the anterior and posterior fragments based on MRI imaging. Minimal canal compromise without significant spinal cord compression. Gen. treatment options were discussed including possible kyphoplasty but kyphoplasty may not be feasible. Due to the severity of the fracture, NSG recommended she proceed with a CT scan of the lumbar and thoracic spine to better determine the fracture configuration prior to making a decision regarding possible kyphoplasty. She was prescribed norco for pain. Review of Systems Other recurrent falls arm pain right Past Family Social History Past Medical History dm hypothyroidism hyperlipidemia septoplasty umbilical hernia repair ckd 3 chronic back pain Reported Medications Hydrocodone-Acetaminophen 5-325 mg Tab 1 Tab PO Q6H PRN Reported Ventolin Hfa 18 GM Inh (Albuterol Sulfate) 90 Mcg/Act Aer 2 Puff INH QID PRN C 500 (Ascorbic Acid) 500 Mg Tab 500 Mg PO HS Atorvastatin (Atorvastatin Calcium) 40 Mg Tab 40 Mg PO HS Calcium (Calcium Carbonate) 600 Mg Tab 600 Mg PO DAILY Vitamin D3 (Cholecalciferol) 1,000 Unit Tab 1,000 Units PO DAILY Coq-10 Tr (Coenzyme Q10 (Ubidecarenone)) 100 Mg Cap 100 Mg PO DAILY Cranberry (Cranberry Fruit Extract) 500 Mg Capsule 500 Mg PO DAILY Ginkgo Biloba 120 Mg Tablet 120 Mg PO DAILY Glipizide 5 Mg Tab 5 Mg PO BID Take 30 minutes before a meal Levothyroxine (Levothyroxine Sodium) 88 Mcg Tab 88 Mcg PO DAILY Lorazepam 0.5 Mg Tab 0.5 Mg PO BID Preservision Areds (Multiple Vitamins W/ Minerals) 1 Tab 1 Tab PO DAILY Pantoprazole (Pantoprazole Sodium) 40 Mg Tab 40 Mg PO DAILY Paxil (Paroxetine HCl) 30 Mg Tab 30 Mg PO DAILY Potassium Gluconate 595 Mg Tab 595 Mg PO DAILY Plavix (Clopidogrel Bisulfate) 75 Mg Tab 75 Mg PO DAILY Questran (Cholestyramine) 4 Gm/Pkt Powd 4 Gm PO TID 1 packet contains 4gm of cholestyramine. Tramadol (Tramadol HCl) 50 Mg Tab 50 Mg PO Q6H PRN Lomotil (Diphenoxylate-Atropine) 2.5-0.025 Mg Tab 1 Tab PO TID PRN Flonase Nasal [place] (Fluticasone Nasal [place]) 50 Mcg/Act [place] 1-2 [place] EACH NARE DAILY Allergies: Coded Allergies: Cipro (Verified Allergy, Mild, Hives, 05/18/17) Ciprofloxacin (Verified Allergy, Mild, Hives, 05/18/17) Levaquin (Verified Allergy, Mild, FLU LIKE SYMPTOMS; CHILLS, 05/18/17) Nitrofurantoin (Verified Allergy, Mild, Hives, 05/18/17) Sulfa (Verified Allergy, Mild, Hives, 05/18/17) Levofloxacin (Verified Adverse Reaction, Severe, Nausea/Vomiting, 05/18/17) Aspirin (Verified Adverse Reaction, Intermediate, IRRITATES STOMACH, ) Family History nc Social History no etoh 1ppd tob x 60 yrs Physical Exam Vital Signs oriented nad lying on bed heart reg lung cta abds /nt ext rue sling rodriguez/ankle skin tears Vital Signs Date Time Temp Pulse Resp B/P Pulse Ox O2 Delivery O2 Flow Rate FiO2 05/18/17 12:07 16 05/18/17 08:53 94 Nasal Cannula 2 05/18/17 08:46 98.2 85 16 172/74 94 Laboratory Laboratory Tests Test 05/18/17 10:00 White Blood Count 10.9 Red Blood Count 4.57 Hemoglobin 14.1 Hematocrit 41.6 Mean Corpuscular Volume 91.0 Mean Corpuscular Hemoglobin 31.0 Mean Corpuscular Hemoglobin 34.1 Concent Red Cell Distribution Width 19.0 Platelet Count 229 Mean Platelet Volume 8.7 Neutrophils (%) (Auto) 75.8 Lymphocytes (%) (Auto) 14.0 Monocytes (%) (Auto) 8.9 Eosinophils (%) (Auto) 0.7 Basophils (%) (Auto) 0.6 Neutrophils # (Auto) 8.3 Lymphocytes # (Auto) 1.5 Monocytes # (Auto) 1.0 Eosinophils # (Auto) 0.1 Basophils # (Auto) 0.1 CBC Comment DIFF FINAL Differential Comment Prothrombin Time 10.7 Prothromb Time International 1.0 Ratio Activated Partial 25.5 Thromboplast Time Sodium Level 141 Potassium Level 3.2 Chloride Level 106 Carbon Dioxide Level 27.4 Anion Gap 8 Blood Urea Nitrogen 12 Creatinine 0.85 Estimat Glomerular Filtration 64 Rate Random Glucose 95 Calcium Level 9.3 Result Diagram: 05/18/17 1000 05/18/17 1000 Assessment and Plan Problem List: (1) Right humeral fracture Status: Acute Plan: Pt is 86 yo with DM who uses walker at home She has problems with frequent loss of balance and falls Rx for uti earlier this month Had fall in March and found to have severe t12 fx and seen by Dr Valenzuela Now with another fall and found to have right humerus fx lower ext skin tears pain control PT eval. she will need snf. consult CM ortho consulted for her fx arm. sling ordered. dvt prophylaxis recheck u/a (2) DM (diabetes mellitus) Status: Chronic (3) T12 compression fracture Status: Acute Plan: see above (4) CKD (chronic kidney disease) stage 3, GFR 30-59 ml/min Status: Chronic (5) Falls frequently Status: Acute Problem Qualifiers (1) Right humeral fracture: Qualified Code: S42.224A - Closed 2-part nondisplaced fracture of surgical neck of right humerus, initial encounter Ricco Prieto MD May 18, 2017 16:28
[2017-05-18] MEDS ORDERED: GLIP5TAB8 PO (16:51)
[2017-05-18] MEDS ORDERED: DIPHENOXYLATE/ATROPINE 2.5 MG/0.025 MG TAB PO PRN (17:00)
[2017-05-18] MEDS ORDERED: PILL SPLITTER OTHER PRN (17:45)
[2017-05-18] MEDS ORDERED: ALBUTEROL SULFATE 90 MCG/ACT HFA 18 GM INHALER INH PRN (17:45)
[2017-05-18] MEDS: CHOLESTYRAMINE 4 GM PACKET PO SCH (18:00)
[2017-05-18 18:47] VITALS: BP 120/59; PULSE 86; RESP 18; O2SAT 95
[2017-05-18 20:30] VITALS: BP 137/61; PULSE 84; RESP 16; TEMP 97.9; O2SAT 95
[2017-05-18] MEDS: glipiZIDE 5 MG TAB PO SCH (21:00)
[2017-05-18] MEDS: INSULIN ASPART SUPPLEMENTAL SCALE SQ SCH (21:00)
[2017-05-18] MEDS: LORazepam 0.5 MG TAB PO SCH (22:40)
[2017-05-18] MEDS: ATORVASTATIN 40 MG TAB PO SCH (22:40)
[2017-05-18] MEDS: ACETAMINOPHEN/HYDROcodone 325 MG/5 MG TAB PO PRN (22:49)
[2017-05-19 00:20] VITALS: BP 141/68; PULSE 81; RESP 16; TEMP 98.7; O2SAT 94
[2017-05-19 04:35] VITALS: BP 136/71; PULSE 90; RESP 16; TEMP 97.3; O2SAT 94
[2017-05-19] MEDS: LEVOTHYROXINE SODIUM 88 MCG TAB PO SCH (06:12)
[2017-05-19] MEDS: INSULIN ASPART SUPPLEMENTAL SCALE SQ SCH ×4 (06:16→21:00)
[2017-05-19 07:39] VITALS: BP 139/75; PULSE 92; RESP 18; TEMP 97.1; O2SAT 95
[2017-05-19] MEDS: CHOLESTYRAMINE 4 GM PACKET PO SCH ×3 (08:00→17:09)
[2017-05-19 08:43] LABS: BICARBONATE 23.1 MEQ/L (21.0-32.0); POTASSIUM 3.9 MEQ/L (3.5-5.1)
[2017-05-19] MEDS ORDERED: POTASSIUM GLUCONATE 595 MG PO SCH (09:00)
[2017-05-19] MEDS: NS + KCL 20 MEQ INJ 1,000 ML IV SCH (09:00)
[2017-05-19] MEDS: PARoxetine HCL 20 MG TAB PO SCH (09:39)
[2017-05-19] MEDS: ACETAMINOPHEN/HYDROcodone 325 MG/5 MG TAB PO PRN ×2 (09:39→17:10)
[2017-05-19] MEDS: LORazepam 0.5 MG TAB PO SCH ×2 (09:39→21:20)
[2017-05-19] MEDS: CLOPIDOGREL 75 MG TAB PO SCH (09:40)
[2017-05-19] MEDS: glipiZIDE 5 MG TAB PO SCH ×2 (09:40→21:00)
[2017-05-19] MEDS: CALCIUM CARBONATE 1.25 GM (CA 500 MG) TAB PO SCH (09:40)
[2017-05-19] MEDS: PANTOPRAZOLE SOD 40 MG DELAYED RELEASE TAB PO SCH (09:40)
[2017-05-19 11:37] VITALS: BP 153/62; PULSE 85; RESP 18; TEMP 96.4; O2SAT 97
--- NOTE | 2017-05-19 13:05 | HHI.PR ---
Subjective Remarks no new events. Objective Vitals heart reg lung cta abd s/nt ext rue sling. Vital Signs Date Time Temp Pulse Resp B/P Pulse Ox O2 Delivery O2 Flow Rate FiO2 05/19/17 11:37 96.4 85 18 153/62 97 05/19/17 07:39 97.1 92 18 139/75 95 05/19/17 04:35 97.3 90 16 136/71 94 05/19/17 00:20 98.7 81 16 141/68 94 05/18/17 20:30 97.9 84 16 137/61 95 05/18/17 18:47 86 18 120/59 95 05/18/17 16:59 16 05/18/17 05/18/17 05/19/17 14:59 22:59 06:59 Intake Total 240 ml 0 ml Balance 240 ml 0 ml Intake Oral 240 ml 0 ml # Voids 3 3 # Bowel Movements 0 1 Result Diagram: 05/18/17 1000 05/19/17 0717 A/P Problem List: (1) Right humeral fracture Status: Acute Plan: Pt is 86 yo with DM who uses walker at home She has problems with frequent loss of balance and falls Rx for uti earlier this month Had fall in March and found to have severe t12 fx and seen by Dr Valenzuela Now with another fall and found to have right humerus fx lower ext skin tears pain control PT eval. she will need snf. consult CM ortho consulted for her fx arm. sling ordered. dvt prophylaxis recheck u/a d/c once arrangements made. (2) DM (diabetes mellitus) Status: Chronic (3) T12 compression fracture Status: Acute Plan: see above (4) CKD (chronic kidney disease) stage 3, GFR 30-59 ml/min Status: Chronic (5) Falls frequently Status: Acute Problem Qualifiers (1) Right humeral fracture: Qualified Code: S42.224A - Closed 2-part nondisplaced fracture of surgical neck of right humerus, initial encounter Ricco Prieto MD May 19, 2017 13:05
[2017-05-19 16:00] VITALS: BP 166/80; PULSE 92; RESP 18; TEMP 98.3; O2SAT 93
--- NOTE | 2017-05-19 16:51 | MB ---
cc: JOELLE ELISE DATE OF CONSULTATION 05/19/17 REASON FOR CONSULTATION Fracture of the right arm. HISTORY OF PRESENT ILLNESS This patient is an 86-year-old female admitted through the emergency room with a fall and an injury to her right arm. She presented to the emergency room and x-rays showed evidence of a fracture of the right proximal humerus. She was placed in a sling and swath. The history is that apparently she was walking with a walker and trying to get to a chair but fell backwards. I have been asked to see her in consultation regarding the same. PAST MEDICAL HISTORY 1. Depression. 2. Cardiovascular disease 3. Diabetes mellitus, 4. Gastroesophageal reflux disease. 5. Urinary incontinence 6. Glaucoma 7. Arthritis 8. Oxygen at nighttime 9. Thyroid disease. PAST SURGICAL HISTORY 1. Umbilical hernia repair 2. Bilateral cataract surgery. SOCIAL HISTORY Denies ethanol. She smoked one pack per day for 65 years. Denies substance abuse. ALLERGIES CIPROFLOXACIN LEVAQUIN NITROFURANTOIN SULFA LEVOFLOXACIN ASPIRIN MEDICATIONS reported include 1. Ventolin 2. statin 3. Calcium 4. Many vitamins, 5. Thyroid replacement, 6. Lorazepam, 7. Paxil, 8. Potassium, 9. Plavix, 10. Tramadol, 11. Lomotil, 12. Flonase REVIEW OF SYSTEMS Negative except for musculoskeletal with pain in the region of the right arm. She notes some swelling. She notes that she has had several falls with a balance disorder. PHYSICAL EXAMINATION GENERAL: Alert, cooperative elderly female appearing older than her stated age. HEENT: Normocephalic, atraumatic. Pupils equal, round, reactive to light and accommodation, extraocular motion intact. NECK: Supple. Chest is clear. HEART: Regular rate and rhythm. ABDOMEN: Soft, nontender. Active bowel sounds. MUSCULOSKELETAL: The right arm is in a sling, moderate swelling of the shoulder, pain with limited range of motion, capillary refill is satisfactory, radial pulse 2+. Sensation normal. IMAGING STUDIES X-rays reviewed and review of the radiologist's interpretation shows evidence of what appears to be a two-part fracture of the proximal humerus. There is mild apex anterior angulation. This is mildly impacted. IMPRESSION Fracture right proximal humerus, surgical neck. PLAN 1. Nonsurgical care this time. 2. Continue sling. 3. Return in my office in 2-3 weeks. X-ray of the right shoulder at that time. If this goes on to displace, surgical treatment in a delayed fashion may be necessary. MD FLETCHER Crum/ /1:37 PM /4:29 PM
[2017-05-19 20:00] VITALS: BP 107/71; PULSE 98; RESP 17; TEMP 98.3; O2SAT 97
[2017-05-19] MEDS: ATORVASTATIN 40 MG TAB PO SCH (21:19)
[2017-05-20] VITALS: BP 116/85; PULSE 90; RESP 16; TEMP 98.5; O2SAT 99
[2017-05-20 01:29] LABS: BLOOD, URINE NEG (NEG); GLUCOSE,URINE NEG (NEG); KETONE, URINE NEG (NEG); MUCUS URINE FEW /lpf (OCC); NITRITE,URINE NEG (NEG); PH, URINE 6.5 (5.0-8.5); RENAL EPITHELIAL CELLS <1 /hpf; SQUAMOUS EPITHELIAL CELL URINE 5 /hpf (0-5); TRANSITIONAL EPI CELLS, URINE <1 /hpf; URINE COLOR YELLOW (YELLW/STRAW)
[2017-05-20 01:30] LABS: COMMENT (UR) CULT NOT INDICATED; CULTURE IF INDICATED CULT NOT INDICATED
[2017-05-20 04:00] VITALS: BP 140/90; PULSE 100; RESP 16; TEMP 97.9; O2SAT 94
[2017-05-20] MEDS: LEVOTHYROXINE SODIUM 88 MCG TAB PO SCH (05:07)
[2017-05-20] MEDS: ACETAMINOPHEN/HYDROcodone 325 MG/5 MG TAB PO PRN ×2 (05:08→11:52)
[2017-05-20] MEDS: INSULIN ASPART SUPPLEMENTAL SCALE SQ SCH ×2 (06:17→11:00)
[2017-05-20 07:47] VITALS: BP 128/73; PULSE 93; RESP 18; TEMP 98; O2SAT 97
[2017-05-20] MEDS: CHOLESTYRAMINE 4 GM PACKET PO SCH ×2 (08:00→11:52)
[2017-05-20] MEDS: PANTOPRAZOLE SOD 40 MG DELAYED RELEASE TAB PO SCH (08:57)
[2017-05-20] MEDS: CALCIUM CARBONATE 1.25 GM (CA 500 MG) TAB PO SCH (08:57)
[2017-05-20] MEDS: glipiZIDE 5 MG TAB PO SCH (08:57)
[2017-05-20] MEDS: LORazepam 0.5 MG TAB PO SCH (08:57)
[2017-05-20] MEDS: CLOPIDOGREL 75 MG TAB PO SCH (08:57)
[2017-05-20] MEDS: PARoxetine HCL 20 MG TAB PO SCH (08:58)
--- NOTE | 2017-05-20 11:08 | HHI.DCPOC ---
Discharge Care Plan Diagnosis: (1) Falls frequently (2) Right humeral fracture (3) T12 compression fracture (4) DM (diabetes mellitus) Goals to Promote Your Health * To prevent worsening of your condition and complications * To maintain your health at the optimal level Directions to Meet Your Goals Take your medications as prescribed Follow your dietary instruction Follow activity as directed Keep your appointments as scheduled Take your immunizations and boosters as scheduled If your symptoms worsen call your PCP, if no PCP go to Urgent Care Center or Emergency Room Smoking is Dangerous to Your Health. Avoid second hand smoke Call the 24-hour hour crisis hotline for domestic abuse at Regina Shukla May 20, 2017 11:08
--- NOTE | 2017-05-20 11:20 | HHI.PR ---
Subjective Remarks No new complaints Pt anxious for discharge to SNF today Objective Vitals Vital Signs Date Time Temp Pulse Resp B/P Pulse Ox O2 Delivery O2 Flow Rate FiO2 05/20/17 07:47 98.0 93 18 128/73 97 05/20/17 04:00 97.9 100 16 140/90 94 05/20/17 00:00 98.5 90 16 116/85 99 05/19/17 21:15 97 Nasal Cannula 2.00 05/19/17 20:00 98.3 98 17 107/71 97 05/19/17 16:00 98.3 92 18 166/80 93 05/19/17 11:37 96.4 85 18 153/62 97 05/19/17 05/19/17 05/20/17 15:00 23:00 07:00 Intake Total 400 ml 480 ml 240 ml Balance 400 ml 480 ml 240 ml Intake Oral 400 ml 480 ml 240 ml # Voids 4 1 2 # Bowel Movements 0 Result Diagram: 05/18/17 1000 05/19/17716 Other Results Laboratory Tests Test 05/19/17 05/20/17 07:17 00:50 Sodium Level 137 MEQ/L Potassium Level 3.9 MEQ/L Chloride Level 105 MEQ/L Carbon Dioxide Level 23.1 MEQ/L Anion Gap 9 MEQ/L Blood Urea Nitrogen 12 MG/DL Creatinine 0.69 MG/DL Estimat Glomerular Filtration 81 ML/MIN Rate Random Glucose 89 MG/DL Calcium Level 9.4 MG/DL Urine Color YELLOW Urine Turbidity HAZY Urine pH 6.5 Urine Specific [place] 1.016 Urine Protein TRACE mg/dL Urine Glucose (UA) NEG mg/dL Urine Ketones NEG mg/dL Urine Occult Blood NEG Urine Nitrite NEG Urine Bilirubin NEG Urine Urobilinogen LESS THAN 2.0 MG/DL Urine Leukocyte Esterase MOD Urine RBC LESS THAN 1 /hpf Urine WBC 5 /hpf Urine Squamous Epithelial 5 /hpf Cells Urine Transitional Epithelial <1 /hpf Cells Urine Renal Epithelial Cells <1 /hpf Urine Mucus FEW /lpf Microscopic Urinalysis Comment CULT NOT INDICATED Imaging Last Impressions Tibia/Fibula X-Ray 05/18/17 0000 Signed Impressions: Service Date/Time: Thursday, May 18, 2017 09:54 - CONCLUSION: 1. No acute fracture or dislocation of the tibia or fibula. 2. Degenerative changes involving the left knee and ankle joints. 3. Plantar and Achilles calcaneal spurs. Juanito Pillai MD Shoulder X-Ray 05/18/17 0000 Signed Impressions: Service Date/Time: Thursday, May 18, 2017 09:49 - CONCLUSION: 1. Acute fracture involving the right proximal humeral head and neck. 2. Degenerative changes involving the right acromioclavicular and glenohumeral joints. Juanito Pillai MD Lumbar Spine X-Ray 05/18/17 0000 Signed Impressions: Service Date/Time: Thursday, May 18, 2017 09:46 - CONCLUSION: 1. Severe compression deformity involving what appears to be T12 of indeterminate age. 2. Degenerative changes and scoliosis of the lumbar spine. Juanito Pillai MD Head CT 05/18/17 0000 Signed Impressions: Service Date/Time: Thursday, May 18, 2017 13:27 - CONCLUSION: 1. Diffuse cerebral atrophy. 2. No acute infarct, acute hemorrhage, mass effect or extraaxial fluid collections. 3. Moderate periventricular and subcortical white matter small vessel ischemic changes bilaterally. Juanito Pillai MD Objective Remarks General: NAD, AAOx3 Chest: CTA Cardiac: Regular Abd: +BS, soft ND/NT Ext: RUE in sling A/P Problem List: (1) Right humeral fracture Status: Acute Plan: - Pt is 86 yo with DM who uses walker at home - She has been having problems with frequent loss of balance and falls - She was recently treated for UTI earlier this month - She had a fall in March and found to have severe t12 fx and seen by Dr Valenzuela - Now with another fall and found to have right humerus fx and lower ext skin tears - TLSO brace to be worn when OOB - Pain control - pt was seen by Ortho and nonoperative management planned - Pt to be discharged to SNF. - She will need to followup with Ortho in 2 weeks. Pt will need to followup with Dr. Valenzuela as well for any recommendations regarding possible Kyphoplasty. (2) DM (diabetes mellitus) Status: Chronic (3) T12 compression fracture Status: Acute Plan: see above (4) CKD (chronic kidney disease) stage 3, GFR 30-59 ml/min Status: Chronic (5) Falls frequently Status: Acute Assessment and Plan Patient examined. Assessment and plan formulated with Regina Shukla PA-C. I agree with the above. family updated at bedside. they agree with plan Problem Qualifiers (1) Right humeral fracture: Qualified Code: S42.224A - Closed 2-part nondisplaced fracture of surgical neck of right humerus, initial encounter Regina Shukla May 20, 2017 11:19 Ricco Prieto MD May 20, 2017 21:45
[2017-05-20 11:46] VITALS: BP 151/74; PULSE 92; RESP 18; TEMP 97.3; O2SAT 97
[2017-05-20] MEDS ORDERED: HYDR-3516 PO (15:03)
[2017-05-20] MEDS ORDERED: LORA-373 PO (15:03)
[2017-05-20 16:00] VITALS: BP 101/60; PULSE 101; RESP 18; TEMP 96; O2SAT 96
== END 2017-05-20 17:30 ==
LOC: NEPD 08:28 → NEDA 11:42 → UNDOADMIN 11:42 → NEDA 11:42 → N06A 19:43
PROVIDERS: ADMIT Hospitalist; ATTEND Hospitalist
DX: S42.224A 2-part nondisplaced fracture of surgical neck of right humerus, initial encounter for closed fracture (principal); M48.54XA Collapsed vertebra, not elsewhere classified, thoracic region, initial encounter for fracture; W18.30XA Fall on same level, unspecified, initial encounter; Z91.81 History of falling; Y93.01 Activity, walking, marching and hiking; Y99.8 Other external cause status; E03.9 Hypothyroidism, unspecified; N18.3 Chronic kidney disease, stage 3 (moderate); E78.5 Hyperlipidemia, unspecified; E11.9 Type 2 diabetes mellitus without complications; M19.90 Unspecified osteoarthritis, unspecified site; F32.9 Major depressive disorder, single episode, unspecified; K21.9 Gastro-esophageal reflux disease without esophagitis; H40.9 Unspecified glaucoma; G47.30 Sleep apnea, unspecified
CPT/HCPCS: 70450; 72100; 73030; 73590; 80048; 81001; 82948; 85025; 85610; 85730; 96374; 97110; 97116; 97162; 99285; G0378; G8987; G8988; J2270; J3480; L0200; L0484